=== PATIENT | male | born 1970 | race Caucasian/White ===

== ENCOUNTER 2016-08-10 18:01 | Emergency (ER) | payer SELFPAY ==
[2016-08-10 18:10] VITALS: BP 131/85; PULSE 64; TEMP 98.1; BMI 24.4
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
[2016-08-10] MEDS ORDERED: HYDROmorphone HCL CARPU-JECT 1 MG/1 ML DISP.SYRIN IVPB ONE ×3 (19:00→22:50)
[2016-08-10] MEDS ORDERED: SODIUM CHLORIDE 1,000 ML IV STA (19:00)
[2016-08-10] MEDS ORDERED: HYDROmorphone HCL CARPU-JECT 1 MG/1 ML DISP.SYRIN ONE ×2 (19:01→23:02)
[2016-08-10 19:09] LABS: BASOPHIL 1.4 % (0-2.0); EOSINOPHIL 0.3 % (0-4.5); MCH 21.8 pg (25.7-33.7); MCHC 31.9 g/dl (32.0-35.9); MEAN CELL VOLUME 68.5 fl (80-96); MEAN PLT VOLUME 8.8 fl (7.5-11.1); NEUTROPHILS 67.3 % (42.8-82.8); PLATELET COUNT 421 K/MM3 (134-434); RDW 19.9 % (11.9-15.9); WHITE BLOOD COUNT 11.1 K/mm3 (4.0-10.0)
[2016-08-10 19:34] LABS: ALBUMIN 3.8 g/dl (3.4-5.0); ANION GAP 11 (8-16); BILIRUBIN,TOTAL 0.4 mg/dL (0.2-1.0); CALCIUM 9.1 mg/dL (8.5-10.1); CO2 22 mmol/L (21-32); COCKROFT - GAULT 106.59; GLUCOSE,RANDOM 100 mg/dL (74-106); SGOT/AST 16 U/L (15-37); SGPT/ALT 16 U/L (12-78); TOT PROT 7.7 g/dl (6.4-8.2)
[2016-08-10 19:35] LABS: ALK PHOS 139 U/L (45-117)
[2016-08-10] MEDS ORDERED: OXYCODONE/APAP 5/325MG COMBO TABLET ONE (20:28)
[2016-08-10] MEDS ORDERED: OXYCODONE/APAP 5/325MG COMBO TABLET PO ONE (20:29)
[2016-08-10 21:27] LABS: ANISOCYTOSIS 1+; HYPOCHROMIA 2+; MICROCYTOSIS 1+; PLATELET ESTIMATE ADEQUATE (NORMAL)
[2016-08-10 23:00] LABS: PH,URINE 7.5 (5.0-8.0); URINE APPEARANCE CLEAR; URINE BILIRUBIN NEGATIVE (NEGATIVE); URINE BLOOD NEGATIVE (NEGATIVE); URINE COLOR LT. YELLOW; URINE GLUCOSE (UA) NEGATIVE (NEGATIVE); URINE KETONE NEGATIVE (NEGATIVE); URINE LEUK ESTERASE NEGATIVE (NEGATIVE); URINE NITRITE NEGATIVE (NEGATIVE); URINE PROTEIN NEGATIVE (NEGATIVE); URINE UROBILINOGEN 0.2 E.U/dl E.U./dl (0.2-1.0)
== END 2016-08-10 23:20 | disposition home or self-care (01) ==
LOC: JER 18:01
PROC: 3E033NZ Introduction of Analgesics, Hypnotics, Sedatives into Peripheral Vein, Percutaneous Approach (ICD-10-PCS; principal; 2016-08-10)
DX: T83.010A Breakdown (mechanical) of cystostomy catheter, initial encounter (principal)
CPT/HCPCS: 36415; 74177-TC; 80053; 81003; 85025; 87040; 87086; 99282-25

== ENCOUNTER 2017-08-16 00:26 | Inpatient (IN) | payer OTHER ==
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
[2017-08-16 00:57] VITALS: BMI 25.2
[2017-08-16] MEDS ORDERED: MAG HYDROX/AL HYDROX/SIMETH 30 ML UNIT-DOSE CUP PO PRN (01:04)
[2017-08-16] MEDS ORDERED: MAGNESIUM HYDROX 2400MG/30ML ORAL SUSPENSION 30 ML CUP PO PRN (01:04)
[2017-08-16] MEDS ORDERED: IBUPROFEN 400 MG TABLET (FP) PO PRN (01:04)
[2017-08-16] MEDS ORDERED: MAGNESIUM CITRATE 300 ML BOTTLE PO PRN (01:04)
[2017-08-16] MEDS ORDERED: METHADONE HCL 10 MG TABLET (FOR DETOX USE ONLY) PO ONE ×3 (01:04→23:00)
[2017-08-16] MEDS ORDERED: MENTHOL/PHENOL 1 EACH UD MM PRN (01:04)
[2017-08-16] MEDS ORDERED: hydrOXYzine PAMOATE 50 MG CAPSULE (FP) PO PRN (01:04)
[2017-08-16] MEDS ORDERED: ACETAMINOPHEN 325 MG TABLET (FP) PO PRN (01:04)
[2017-08-16] MEDS ORDERED: P-EPHED 60MG/TRIPROLIDI 2.5MG TABLET PO PRN (01:04)
[2017-08-16] MEDS ORDERED: guaiFENesin/D-METHORPHAN HB 10 ML UNIT-DOSE CUPS PO PRN (01:04)
[2017-08-16] MEDS ORDERED: LOPERAMIDE HCL 2 MG CAPSULE PO PRN (01:04)
[2017-08-16] MEDS ORDERED: NICOTINE POLACRILEX 2 MG GUM BC PRN (01:04)
[2017-08-16] MEDS: diazePAM 5 MG TABLET PO PRN ×5 (01:47→22:14)
[2017-08-16] MEDS: PANTOPRAZOLE 40 MG TABLET (FP) PO SCH (10:16)
[2017-08-16 10:17] LABS: HEMATOCRIT 29.9 % (35.4-49); HEMOGLOBIN 9.9 GM/dL (11.7-16.9); MEAN CELL VOLUME 78.8 fl (80-96); PLATELET COUNT 338 K/MM3 (134-434); RBC 3.79 M/mm3 (4.00-5.60); RDW 19.1 % (11.9-15.9); WHITE BLOOD COUNT 9.4 K/mm3 (4.0-10.0)
[2017-08-16] MEDS: NICOTINE 14 MG/24 HOURS TOPICAL PATCH TD SCH (10:17)
[2017-08-16] MEDS: PRENATAL VITAMINS W/ FOLIC ACID TABLET (FP) PO SCH (10:17)
[2017-08-16 10:29] LABS: ALBUMIN 3.7 g/dl (3.4-5.0); ANION GAP 6 (8-16); BLOOD UREA NITROGEN 11 mg/dL (7-18); CALCIUM 8.5 mg/dL (8.5-10.1); CHLORIDE 108 mmol/L (98-107); CO2 27 mmol/L (21-32); GLUCOSE,RANDOM 89 mg/dL (74-106); POTASSIUM 3.9 mmol/L (3.5-5.1); SODIUM 141 mmol/L (136-145)
[2017-08-16 10:34] LABS: ALK PHOS 91 U/L (45-117); BILIRUBIN,TOTAL 0.3 mg/dL (0.2-1.0); CREATININE 0.8 mg/dL (0.7-1.3); SGOT/AST 14 U/L (15-37); SGPT/ALT 12 U/L (12-78); TOT PROT 6.8 g/dl (6.4-8.2)
--- NOTE | 2017-08-16 11:15 | CONSULT ---
[facility] Psychiatric Consult - Data Date of interview: 08/16/17 Admission source: [facility] Substance Abuse History: Patient is approached for psychiatric interview.Mr Langford REFUSED.Nursing staff is made aware.
--- NOTE | 2017-08-16 11:35 | EKG ---
Test Reason : Blood Pressure : / mmHG Vent. Rate : 061 BPM Atrial Rate : 061 BPM P-R Int : 142 ms QRS Dur : 092 ms QT Int : 410 ms P-R-T Axes : 062 056 033 degrees QTc Int : 412 ms NORMAL SINUS RHYTHM NORMAL ECG WHEN COMPARED WITH ECG OF 16-AUG-2017 02:01, NO SIGNIFICANT CHANGE WAS FOUND Confirmed by MOISES CALI MD ([id number]) on 08/16/2017 11:34:34 AM Referred By: Shahzad Reynoso Confirmed By:MOISES CALI MD
--- NOTE | 2017-08-16 11:35 | EKG ---
Test Reason : Blood Pressure : / mmHG Vent. Rate : 067 BPM Atrial Rate : 067 BPM P-R Int : 132 ms QRS Dur : 094 ms QT Int : 396 ms P-R-T Axes : 058 053 030 degrees QTc Int : 418 ms NORMAL SINUS RHYTHM POSSIBLE LEFT ATRIAL ENLARGEMENT INCOMPLETE RIGHT BUNDLE BRANCH BLOCK BORDERLINE ECG NO PREVIOUS ECGS AVAILABLE Confirmed by KARELY ALCANTAR, MOISES ([id number]) on 08/16/2017 11:35:01 AM Referred By: Shahzad Reynoso Confirmed By:MOISES CALI MD
[2017-08-16] MEDS: cloNIDine HCL 0.1 MG TABLET PO SCH ×2 (13:08→22:14)
--- NOTE | 2017-08-16 15:08 | PN ---
S COWS - Scale Resting Pulse: 0= [place] 80 or Below Sweatin= Chills/Flushing Restless Observation: 0= Sits Still Pupil Size: 0= Normal to Room Light Bone or Joint Aches: 2= Severe Diffuse Aches Runny Nose/ Eye Tearin= Runny Nose/Eyes GI Upset > 30mins: 0= None Tremor Observation of Outstretched Hands: 2= Slight Tremor Visible Yawning Observation: 2= >3x During Session Anxiety or Irritability: 4=Extreme Anxiety Goose Flesh Skin: 3=Piloerection COWS Score: 16 BHS Progress Note (SOAP) Subjective: Tremors, Anxious, Sweating, Body Aches, Fatigue. Objective: PATIENT A & O X 3. NO ACUTE DISTRESS. 08/16/17 15:06 Vital Signs Temperature 98.5 F 08/16/17 09:50 Pulse Rate 54 L 08/16/17 09:50 Respiratory Rate 18 08/16/17 09:50 Blood Pressure 120/76 08/16/17 09:50 O2 Sat by Pulse Oximetry (%) Laboratory Tests 08/16/17 08/16/17 08/16/17 07:40 07:40 07:40 WBC 9.4 RBC 3.79 L D Hgb 9.9 L D Hct 29.9 L D MCV 78.8 L MCH 26.0 D MCHC 33.0 RDW 19.1 H Plt Count 338 MPV 9.0 Sodium 141 Potassium 3.9 Chloride 108 H Carbon Dioxide 27 D Anion Gap 6 L BUN 11 D Creatinine 0.8 Creat Clearance w eGFR > 60 Random Glucose 89 Calcium 8.5 Total Bilirubin 0.3 D AST 14 L ALT 12 D Alkaline Phosphatase 91 D Total Protein 6.8 Albumin 3.7 RPR Titer Nonreactive LABS NOTED. [place] RESULTS PENDING. 08/16/17 15:11 Assessment: 08/16/17 15:07 WITHDRAWAL SYMPTOMS. MICROCYTIC ANEMIA. 08/16/17 15:10 Plan: CONTINUE DETOX. FEOSOL, 325 MG TIDCM. INCREASE DAILY PO FLUID INTAKE. ENCOURAGE AMBULATION.
[2017-08-16] MEDS: FERROUS SO4 325 MG TABLET (FP) PO SCH (17:31)
[2017-08-16] MEDS ORDERED: CYCLOBENZAPRINE HCL 10 MG TABLET (FP) PO PRN (18:03)
--- NOTE | 2017-08-16 18:03 | PN ---
S Progress Note Note: patient complained of chest pain Vital Signs Temperature 97.7 F 08/16/17 17:35 Pulse Rate 67 08/16/17 17:35 Respiratory Rate 18 08/16/17 17:35 Blood Pressure 97/55 08/16/17 17:35 O2 Sat by Pulse Oximetry (%) pluse ox 100 ekg snr,normal ecg,prolong qt withdrawal pain continue detox close monitoring flexeril 10 mgs po tid prn clonidine 0.1 mg po bid to hold if systolic bp below 100
[2017-08-16] MEDS ORDERED: THIAMINE HCL 100 MG TABLET (FP) PO SCH (22:00)
[2017-08-16] MEDS ORDERED: MELATONIN 5 MG TABLETS PO PRN (22:00)
[2017-08-17] MEDS: diazePAM 5 MG TABLET PO PRN ×3 (05:41→15:08)
[2017-08-17] MEDS: FERROUS SO4 325 MG TABLET (FP) PO SCH ×2 (07:30→13:43)
[2017-08-17] MEDS ORDERED: METHADONE HCL 10 MG TABLET (FOR DETOX USE ONLY) PO ONE (10:00)
[2017-08-17 10:08] VITALS: BP 136/85; PULSE 71; TEMP 98.6
[2017-08-17] MEDS: PRENATAL VITAMINS W/ FOLIC ACID TABLET (FP) PO SCH (10:28)
[2017-08-17] MEDS: PANTOPRAZOLE 40 MG TABLET (FP) PO SCH (10:30)
[2017-08-17] MEDS: cloNIDine HCL 0.1 MG TABLET PO SCH (10:31)
[2017-08-17] MEDS: NICOTINE 14 MG/24 HOURS TOPICAL PATCH TD SCH (10:32)
--- NOTE | 2017-08-17 10:47 | EKG ---
Test Reason : Blood Pressure : / mmHG Vent. Rate : 063 BPM Atrial Rate : 063 BPM P-R Int : 128 ms QRS Dur : 088 ms QT Int : 402 ms P-R-T Axes : 060 057 031 degrees QTc Int : 411 ms NORMAL SINUS RHYTHM NORMAL ECG WHEN COMPARED WITH ECG OF 16-AUG-2017 06:10, NO SIGNIFICANT CHANGE WAS FOUND Confirmed by MOISES CALI MD ([id number]) on 08/17/2017 10:46:53 AM Referred By: Shahzad Reynoso Confirmed By:MOISES CALI MD
--- NOTE | 2017-08-17 16:51 | PN ---
BHS COWS - Scale Resting Pulse: 0= [place] 80 or Below Sweatin=Flushed/Facial Moisture Restless Observation: 0= Sits Still Pupil Size: 0= Normal to Room Light Bone or Joint Aches: 2= Severe Diffuse Aches Runny Nose/ Eye Tearin= Runny Nose/Eyes GI Upset > 30mins: 1= Stomach Cramp Tremor Observation of Outstretched Hands: 2= Slight Tremor Visible Yawning Observation: 2= >3x During Session Anxiety or Irritability: 4=Extreme Anxiety Goose Flesh Skin: 0=Smooth Skin COWS Score: 15 BHS Progress Note (SOAP) Subjective: Tremors, Sweating, Body Aches, Stomach Cramping, Anxious. Objective: PATIENT A & O X 3, OBSERVED AMBULATING ON UNIT. NO ACUTE DISTRESS. PATIENT UNWILLING TO ALLOW SUPPORT MANAGER TO VIEW SITE OF SUPRAPUBIC CATHETER. PATIENT DENIES ANY DISCOMFORT AT SITE AND HE DENIES ANY UNUSUAL URINARY SYMPTOMS ( BURNING, PAIN, FREQUENCY, URGENCY). PATIENT DENIES CHEST PAIN AT THIS TIME. 08/17/17 16:48 Vital Signs Temperature 98.6 F 08/17/17 10:07 Pulse Rate 71 08/17/17 10:07 Respiratory Rate 18 08/17/17 10:07 Blood Pressure 136/85 08/17/17 10:07 O2 Sat by Pulse Oximetry (%) Laboratory Tests 08/16/17 08/16/17 08/16/17 07:40 07:40 07:40 WBC 9.4 RBC 3.79 L D Hgb 9.9 L D Hct 29.9 L D MCV 78.8 L MCH 26.0 D MCHC 33.0 RDW 19.1 H Plt Count 338 MPV 9.0 Sodium 141 Potassium 3.9 Chloride 108 H Carbon Dioxide 27 D Anion Gap 6 L BUN 11 D Creatinine 0.8 Creat Clearance w eGFR > 60 Random Glucose 89 Calcium 8.5 Total Bilirubin 0.3 D AST 14 L ALT 12 D Alkaline Phosphatase 91 D Total Protein 6.8 Albumin 3.7 RPR Titer Nonreactive LABS NOTED. UA RESULTS PENDING. URINE C + S ORDERED FOR HISTORY OF SUPRAPUBIC CATHETER PLACEMENT. 08/17/17 16:49 Assessment: 08/17/17 16:48 WITHDRAWAL SYMPTOMS. Plan: CONTINUE DETOX. INCREASE DAILY PO FLUID INTAKE. ENCOURAGE AMBULATION.
--- NOTE | 2017-08-17 16:58 | DS ---
[facility] Detox Discharge Summary Admission Date: 08/16/17 Discharge Date: 08/17/17 - History Present History: Cannabis Dependence, Opioid Dependence Additional Comments: PATIENT DOES NOT WISH TO STAY TO COMPLETE DETOX REGIMEN. RISKS OF LEAVING DETOX UNIT AGAINST MEDICAL ADVICE AND PRIOR TO COMPLETION OF DETOX REGIMEN EXPLAINED TO PATIENT. PATIENT ADVISED TO GO IMMEDIATELY TO NEAREST ER SHOULD ANY INTOLERABLE DETOX SYMPTOMS DEVELOP AT ANY TIME. PATIENT LEFT DETOX UNIT IN STABLE MEDICAL CONDITION. Pertinent Past History: Depression, Nicotine Dependence, History of Wound of bladder, S/P Urological Surgery, History of Suprapubic catheter placement, GERD. - Physical Exam Results Vital Signs: Vital Signs Temperature 98.6 F 08/17/17 10:07 Pulse Rate 71 08/17/17 10:07 Respiratory Rate 18 08/17/17 10:07 Blood Pressure 136/85 08/17/17 10:07 O2 Sat by Pulse Oximetry (%) Pertinent Admission Physical Exam Findings: WITHDRAWAL SYMPTOMS. Laboratory Tests 08/16/17 08/16/17 08/16/17 07:40 07:40 07:40 WBC 9.4 RBC 3.79 L D Hgb 9.9 L D Hct 29.9 L D MCV 78.8 L MCH 26.0 D MCHC 33.0 RDW 19.1 H Plt Count 338 MPV 9.0 Sodium 141 Potassium 3.9 Chloride 108 H Carbon Dioxide 27 D Anion Gap 6 L BUN 11 D Creatinine 0.8 Creat Clearance w eGFR > 60 Random Glucose 89 Calcium 8.5 Total Bilirubin 0.3 D AST 14 L ALT 12 D Alkaline Phosphatase 91 D Total Protein 6.8 Albumin 3.7 RPR Titer Nonreactive LABS NOTED. UA, URINE C + S RESULTS PENDING. - Treatment Hospital Course: Detoxed Safely - Medication Discharge Medications: Ambulatory Orders Ciprofloxacin [Cipro -] 500 mg PO Q12H #10 tablet 08/10/16 - Diagnosis (1) Cannabis abuse, uncomplicated Current Visit: Yes Status: Chronic (2) GERD (gastroesophageal reflux disease) Current Visit: Yes Status: Chronic Qualifiers: Esophagitis presence: esophagitis presence not specified Qualified Code(s) : K21.9 - Gastro-esophageal reflux disease without esophagitis (3) Nicotine dependence Current Visit: Yes Status: Chronic Qualifiers: Nicotine product type: cigarettes Substance use status: uncomplicated Qualified Code(s): F17.210 - Nicotine dependence, cigarettes, uncomplicated (4) Opioid dependence with withdrawal Current Visit: Yes Status: Chronic (5) S/P urological surgery Current Visit: Yes Status: Chronic (6) Suprapubic catheter dysfunction Current Visit: Yes Status: Acute Qualifiers: Encounter type: initial encounter Qualified Code(s): T83.010A - Breakdown ( mechanical) of cystostomy catheter, initial encounter (7) Psychiatric disorder Current Visit: Yes Status: Suspected - AMA Did Patient Leave Against Medical Advice: Yes (PATIENT DID NOT WISH TO STAY TO COMPLETE DETOX REGIMEN.)
[2017-08-18] MEDS ORDERED: METHADONE HCL 5 MG TABLET (FOR DETOX USE ONLY) PO ONE (10:00)
[2017-08-19] MEDS ORDERED: METHADONE HCL 5 MG TABLET (FOR DETOX USE ONLY) PO ONE (10:00)
[2017-08-20] MEDS ORDERED: METHADONE HCL 10 MG TABLET (FOR DETOX USE ONLY) PO ONE (10:00)
[2017-08-21] MEDS ORDERED: METHADONE HCL 5 MG TABLET (FOR DETOX USE ONLY) PO ONE (06:00)
== END 2017-08-17 16:30 | disposition left against medical advice (07) | DRG 770 ==
LOC: YASAS 00:26 → Y3N 00:30
PROVIDERS: ADMIT Internal Medicine; ATTEND Internal Medicine
PROC: HZ2ZZZZ Detoxification Services for Substance Abuse Treatment (ICD-10-PCS; principal; 2017-08-16)
DX: F11.23 Opioid dependence with withdrawal (principal); F12.10 Cannabis abuse, uncomplicated; F17.210 Nicotine dependence, cigarettes, uncomplicated; F99 Mental disorder, not otherwise specified; K21.9 Gastro-esophageal reflux disease without esophagitis; D50.9 Iron deficiency anemia, unspecified; R00.0 Tachycardia, unspecified; Z90.49 Acquired absence of other specified parts of digestive tract
CPT/HCPCS: 36415; 80053; 85027; 86593; 93005; 93010; J0735

== ENCOUNTER 2018-07-14 12:52 | Inpatient (IN) | payer OTHER ==
[2018-07-14 18:14] VITALS: BMI 28.2
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
[2018-07-14] MEDS ORDERED: NICOTINE POLACRILEX 2 MG GUM BUC PRN (18:45)
[2018-07-14] MEDS ORDERED: DICYCLOMINE HCL 10 MG CAPSULE PO PRN (18:45)
[2018-07-14] MEDS ORDERED: BISMUTH SUBSALICYLATE 524 MG/30 ML UD PO PRN (18:45)
[2018-07-14] MEDS ORDERED: MAGNESIUM CITRATE 300 ML BOTTLE PO PRN (18:45)
[2018-07-14] MEDS ORDERED: hydrOXYzine PAMOATE 25 MG CAPSULE (FP) PO PRN (18:45)
[2018-07-14] MEDS ORDERED: MENTHOL/PHENOL 1 EACH UD MM PRN (18:45)
[2018-07-14] MEDS ORDERED: cloNIDine HCL 0.1 MG TABLET PO PRN (18:45)
[2018-07-14] MEDS ORDERED: MELATONIN 5 MG TABLETS PO PRN (18:45)
[2018-07-14] MEDS ORDERED: MAG HYDROX/AL HYDROX/SIMETH 30 ML UNIT-DOSE CUP PO PRN (18:45)
[2018-07-14] MEDS ORDERED: MAGNESIUM HYDROX 2400MG/30ML ORAL SUSPENSION 30 ML CUP PO PRN (18:45)
[2018-07-14] MEDS ORDERED: ACETAMINOPHEN 325 MG TABLET (FP) PO PRN ×2 (18:45)
[2018-07-14] MEDS ORDERED: IBUPROFEN 400 MG TABLET (FP) PO PRN (18:45)
[2018-07-14] MEDS ORDERED: THIAMINE HCL 100 MG TABLET (FP) PO SCH (22:00)
[2018-07-14] MEDS ORDERED: METHADONE HCL 10 MG TABLET (FOR DETOX USE ONLY) PO ONE (23:00)
[2018-07-15 06:44] VITALS: BP 119/58; PULSE 60; TEMP 98.9
[2018-07-15] MEDS ORDERED: METHADONE HCL 10 MG TABLET (FOR DETOX USE ONLY) PO ONE (10:00)
[2018-07-15] MEDS ORDERED: PRENATAL VITAMINS W/ FOLIC ACID TABLET (FP) PO SCH (10:00)
--- NOTE | 2018-07-15 10:00 | DS ---
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 - Physical Exam Results Vital Signs: Vital Signs Temperature 98.9 F 07/15/18 06:43 Pulse Rate 60 07/15/18 06:43 Respiratory Rate 18 07/15/18 06:43 Blood Pressure 119/58 L 07/15/18 06:43 O2 Sat by Pulse Oximetry (%) Pertinent Admission Physical Exam Findings: opiate withdrawal sx lab pending - Treatment Hospital Course: Detox Protocol Followed, Responded well Patient has Accepted a Rehab Referral to: [facility] - Medication Discharge Medications: Ambulatory Orders Naloxone HCl [Narcan] 4 mg NS ASDIR PRN #1 spray 07/15/18 - Diagnosis (1) Opioid dependence with withdrawal Current Visit: Yes Status: Acute (2) Nicotine dependence Current Visit: Yes Status: Acute Qualifiers: Nicotine product type: cigarettes Substance use status: in withdrawal Qualified Code(s): F17.213 - Nicotine dependence, cigarettes, with withdrawal (3) GERD (gastroesophageal reflux disease) Current Visit: Yes Status: Chronic Qualifiers: Esophagitis presence: without esophagitis Qualified Code(s): K21.9 - Gastro -esophageal reflux disease without esophagitis - AMA Did Patient Leave Against Medical Advice: Yes
[2018-07-15 12:43] LABS: HEMATOCRIT 46.6 % (35.4-49); HEMOGLOBIN 15.6 GM/dL (11.7-16.9); MCH 29.9 pg (25.7-33.7); MCHC 33.5 g/dl (32.0-35.9); MEAN CELL VOLUME 89.3 fl (80-96); MEAN PLT VOLUME 9.3 fl (7.5-11.1); PLATELET COUNT 242 K/MM3 (134-434); RBC 5.22 M/mm3 (4.00-5.60); RDW 14.3 % (11.9-15.9); WHITE BLOOD COUNT 8.9 K/mm3 (4.0-10.0)
[2018-07-15 13:10] LABS: ALBUMIN 3.8 g/dl (3.4-5.0); ALK PHOS 106 U/L (45-117); ANION GAP 9 MMOL/L (8-16); BILIRUBIN,TOTAL 0.5 mg/dL (0.2-1); BLOOD UREA NITROGEN 18 mg/dL (7-18); CALCIUM 8.4 mg/dL (8.5-10.1); CHLORIDE 102 mmol/L (98-107); CO2 27 mmol/L (21-32); CREATININE 1.2 mg/dL (0.55-1.3); GLUCOSE,RANDOM 108 mg/dL (74-106); POTASSIUM 3.8 mmol/L (3.5-5.1); SGOT/AST 15 U/L (15-37); SGPT/ALT 14 U/L (13-61); SODIUM 139 mmol/L (136-145)
[2018-07-16] MEDS ORDERED: METHADONE HCL 10 MG TABLET (FOR DETOX USE ONLY) PO ONE (10:00)
[2018-07-17] MEDS ORDERED: METHADONE HCL 10 MG TABLET (FOR DETOX USE ONLY) PO ONE (10:00)
[2018-07-18] MEDS ORDERED: METHADONE HCL 5 MG TABLET (FOR DETOX USE ONLY) PO ONE (06:00)
== END 2018-07-15 08:59 | disposition left against medical advice (07) | DRG 770 ==
LOC: YASAS 12:52 → Y3N 22:33
PROVIDERS: ADMIT Surgery; ATTEND Surgery
PROC: HZ2ZZZZ Detoxification Services for Substance Abuse Treatment (ICD-10-PCS; principal; 2018-07-14)
DX: F11.23 Opioid dependence with withdrawal (principal); F12.10 Cannabis abuse, uncomplicated; F17.213 Nicotine dependence, cigarettes, with withdrawal; K21.9 Gastro-esophageal reflux disease without esophagitis
CPT/HCPCS: 36415; 80053; 85027; 86593; J0735

== ENCOUNTER 2020-10-20 14:55 | Emergency (ER) | payer OTHER ==
[2020-10-20 15:14] VITALS: BP 128/84; PULSE 84; TEMP 98.3; BMI 28.5
== END 2020-10-20 17:22 | disposition home or self-care (01) ==
LOC: JER 14:55
DX: B37.0 Candidal stomatitis (principal)
CPT/HCPCS: 99281-25